=== PATIENT | female | born 1990 | race Caucasian/White ===

== ENCOUNTER 2023-07-12 11:16 | Emergency (ER) | payer MEDICAID ==
[~2023-07-12] VITALS: Ht 154.9 cm; Wt 86.2 kg
[2023-07-12 11:32] VITALS: BP_SYST 139; PULSE 82; RESP 16; TEMP 98.5; O2SAT 99
[2023-07-12] MEDS: MORPHINE 4 MG INJ. 4 MG/ML VIAL IM ONE (12:46)
[2023-07-12] MEDS: KETAMINE HCL 500 MG/10 ML VIAL IM ONE (12:53)
[2023-07-12] MEDS: KETAMINE HCL IN 0.9 % NACL 50 MG/5 ML SYRINGE IV ONE (12:58)
[2023-07-12] MEDS ORDERED: CLON1TAB12 PO (13:46)
[2023-07-12] MEDS ORDERED: PRED50TA PO (13:46)
[2023-07-12] MEDS ORDERED: NAPR-688 PO (13:46)
[2023-07-12] MEDS ORDERED: TRAM50TA2 PO (13:46)
[2023-07-12 14:34] VITALS: BP_SYST 113; PULSE 72; RESP 17; TEMP 97.2; O2SAT 98
== END 2023-07-12 14:38 | disposition home or self-care (01) ==
LOC: SED 11:16
DX: M54.16 Radiculopathy, lumbar region (principal); E66.01 Morbid (severe) obesity due to excess calories; Z98.890 Other specified postprocedural states; Z79.899 Other long term (current) drug therapy; Z79.2 Long term (current) use of antibiotics
CPT/HCPCS: 99284; 96372; J2270